=== PATIENT | male | born 1995 | race Caucasian/White ===

== ENCOUNTER 2019-05-09 09:33 | Emergency (ER) | payer OTHER, SELFPAY ==
[2019-05-09 09:45] VITALS: BP 144/93; PULSE 99; RESP 18; TEMP 36.8; O2SAT 99
--- NOTE | 2019-05-09 09:53 | ECG_ITS ---
Measurements Intervals [place] Rate: 64 P: 63 VA: 136 QRS: 40 QRSD: 93 T: 38 QT: 366 QTc: 379 Interpretive Statements SINUS RHYTHM NORMAL ECG Electronically Signed On 05-09-2019 10:29:07 INSPECTOR FINAL ASSEMBLY CONVEYOR LINE by Sarbjit Stark D.O.
--- NOTE | 2019-05-09 09:59 | ED.NEUROSD ---
HPI - Neuro Symptoms/Deficit General Chief Complaint: Neuro Symptoms/Deficit Stated Complaint: Numbness in Face,Pain in left Arm Time Seen by Provider: 05/09/19 09:45 Source: patient, family and RN notes reviewed Mode of arrival: ambulatory Limitations: no limitations History of Present Illness HPI Narrative: Patient presents today complaining of a sudden onset bilateral temporal headache that started at 730 this morning. Lasted a few minutes, then mostly resolved. This was then followed by some left-sided facial numbness that started out on the left lateral portion of the nose extending to the cheek and left upper lip. This symptom has improved slightly, but is still present. This symptom was followed by some mild pain in the left arm and leg, then some nausea and vomiting x1 around 830 this morning. Pain in the arm and leg are resolved. Patient has no persistent nausea. Reports his only symptoms currently are lightheadedness and mild facial numbness. Denies chest pain, shortness of breath, abdominal pain. Denies numbness or tingling in the arms or legs. He has tried no interventions at home prior to arrival. Reports grandfather had an MA at a young age and mother currently has an arrhythmia. Patient has history of anxiety and depression with occasional panic attacks. States this does not feel like his normal panic attack. No history of migraines. Related Data Home Medications Medication Instructions Recorded Confirmed bupropion HCl [Wellbutrin XL] 150 mg PO QAM 05/09/19 05/09/19 Allergies Allergy/AdvReac Type Severity Reaction Status Date / Time No Known Allergies Allergy Verified 05/09/19 09:45 Review of Systems Review of Systems: Narrative: CONSTITUTIONAL: Denies body aches, fever, chills, or sweats. EYES: Denies visual changes, redness, or discharge. ENT: Denies rhinorrhea, congestion, sore throat, or otalgia. CARDIOVASCULAR: Denies chest pain, palpitations, or edema. RESPIRATORY: Denies cough or dyspnea. GASTROINTESTINAL: Denies abdominal pain, nausea, vomiting, or diarrhea. GENITOURINARY: Denies dysuria or hematuria. SKIN: Denies rash, itching, or wounds. MUSCULOSKELETAL: Denies back pain, joint pain, or myalgia. NEUROLOGIC: Denies headache, tingling, or weakness.+ Facial numbness, lightheadedness PSYCH: Denies depression or anxiety. [facility] Past Medical History Medical History (Updated 05/09/19 @ 10:07 by Tete Dickey, COMMUNICATION TECHNICIAN, ) Anxiety Depression History of panic attacks Social History Social History Gender identity (if verbalized by the patient): Male Comments At time of signature, I have reviewed and agree with nursing past medical, surgical, social and family history unless otherwise noted. Please see nursing chart for further information. There is no relevant family history pertinent to the presenting complaint Exam Narrative: Exam Narrative: GENERAL: Well-appearing, well-nourished, and in no acute distress. HEAD: Normocephalic, atraumatic. EYES: EOMI. No redness or drainage. Conjunctivae normal. ENT: Mucous membranes pink and moist. Nares clear. No rhinorrhea. TMs normal bilaterally. NECK: Normal AROM. CHEST: No respiratory distress. Clear to auscultation. HEART: Regular rate and rhythm. No murmur appreciated. Normal peripheral pulses. MUSCULOSKELETAL: No bony tenderness. EXTREMITIES: Normal range of motion. No edema. SKIN: Warm, dry, no rash. NEURO: No focal deficits. Cranial nerves intact. Alert and oriented x3. Gait steady. Foot push and pulls normal and strong. Hand director ship equal and strong. PSYCH: Normal affect. No signs of depression or anxiety. Course Vital Signs Vital signs: Vital Signs Temperature 98.3 F 05/09/19 09:45 Pulse Rate 99 05/09/19 09:45 Respiratory Rate 18 05/09/19 09:45 Blood Pressure 144/93 H 05/09/19 09:45 Pulse Oximetry 99 05/09/19 09:45 Temperature 98.3 F 05/09/19 09:45 Pulse Rate 99 05/09/19 09:45 Respirat
== END 2019-05-09 10:08 | disposition short-term general hospital (02) ==
PROVIDERS: Emergency Provider Nurse Practitioner; PCP Physician Assistant
DX: R20.0 Anesthesia of skin (principal); R42 Dizziness and giddiness; F32.9 Major depressive disorder, single episode, unspecified
CPT/HCPCS: 93005; 99203; G0463

== ENCOUNTER 2019-05-09 10:20 | Emergency (ER) | payer OTHER, SELFPAY ==
--- NOTE | ~2019-05-09 | CT_ITS ---
EXAMINATION: CTA brain carotid DATE: 05/09/2019 11:45 INDICATION: Acute temporal headache. TECHNIQUE: Computed tomographic angiography (CTA) of the head was performed without and with 100 mL O mnipaque-350 intravenous contrast. CTA of the neck was performed with intravenous contrast. Automated exposure control and iterative reconstruction technique were employed. The dose-length product was 1 759.84 mGy-cm. Maximum intensity projection and volume rendered 3D-reconstructions were created by teresa bonds technologist on a separate workstation. COMPARISON: None. FINDINGS: HEAD CTA: There is no intracranial hemorrhage, acute infarction, or abnormal intracranial mass lesion . The ventricles are normal in size. There is mucosal thickening in the paranasal sinuses. The mastoi d air cells are normal. The orbits are normal. The vertebral arteries are codominant. There is no sig nificant stenosis of basilar artery or the posterior cerebral arteries. There is no significant steno sis of the intracranial internal carotid arteries or anterior or middle cerebral arteries. Anterior c ommunicating artery and the posterior communicating arteries are normal. There is no aneurysm. NECK CTA: There are no pathologically enlarged lymph nodes. There is no significant stenosis of the v ertebral arteries. There is no visible plaque in the proximal internal carotid arteries. There is 0% stenosis of the proximal right internal carotid artery relative to normal distal artery lumen diamete r (NASCET criteria). There is 0% stenosis of the proximal left internal carotid artery relative to no rmal distal artery lumen diameter. The cervical spine is normal. IMPRESSION: 1. Normal brain. No aneurysm or significant intracranial arterial stenosis. 2. Normal neck arteries. Reviewed, dictated and finalized at location A. H TECHNICIAN
--- NOTE | ~2019-05-09 | XR_ITS ---
EXAMINATION: XR chest 2V EXAM DATE: 05/09/2019 11:16 INDICATION: Left arm numbness. Left chest pain. TECHNIQUE: Frontal and lateral projections of the chest obtained and reviewed. There is no prior georgi dy for comparison. FINDINGS: The lungs are clear. There are no pleural effusions. The cardiomediastinal silhouette is within normal limits. There is no pneumothorax suspected. The bones and soft tissues are unremarkab le. IMPRESSION: No acute cardiopulmonary findings. Reviewed, dictated and finalized at location A. CTION MACHINE OPERATOR
--- NOTE | 2019-05-09 10:29 | ED.NEUROSD ---
HPI - Neuro Symptoms/Deficit General Chief Complaint: Neuro Symptoms/Deficit Stated Complaint: Numbness, HERNANDEZ Time Seen by Provider: 05/09/19 10:24 Source: patient Mode of arrival: ambulatory Limitations: no limitations History of Present Illness HPI Narrative: Pt is a 23 y/o male who presents to the ED from the with c/o a throbbing MIGDALIA temporal HERNANDEZ that started this morning. Pt states that the HERNANDEZ started suddenly and it alleviated after a minute. He was able to eat breakfast, but after breakfast he got a numbing sensation in a small area from his lt nostril, lt upper lip, and lt cheek. Pt vomited afterwards and started experiencing lt arm pain, weakness, and chest tightness. He felt lightheaded when he was at the waiting room. Per spouse, pt did not have slurred speech or facial drooping. He has a FHx of cardiac disease. Pt has a H/o anxiety but states that his Sx were not consistent with previous panic attacks. He states that he has chronic neck stiffness. Pt is not having any Sx in the ED bed. Onset (ago): hour(s) (this morning) Location: left face and other (HERNANDEZ) History of same: No Quality: numb and other (HERNANDEZ) Relieving factors: time Exacerbating factors: none Context: sudden onset Associated symptoms: other (lightheadedness) Related Data Home Medications Medication Instructions Recorded Confirmed bupropion HCl [Wellbutrin XL] 150 mg PO QAM 05/09/19 05/09/19 Allergies Allergy/AdvReac Type Severity Reaction Status Date / Time No Known Allergies Allergy Verified 05/09/19 09:45 Review of Systems Review of Systems: Narrative: CONSTITUTIONAL: Reports generalized weakness CARDIOVASCULAR: Reports lightheadedness and chest tightness GASTROINTESTINAL: Reports vomiting MUSCULOSKELETAL: Reports lt arm pain and chronic neck stiffness NEUROLOGIC: Reports MIGDALIA temporal HERNANDEZ, numbness to lt face. Denies slurred speech or facial drooping All systems reviewed & are unremarkable except as noted in HPI and below PMFSH Past Medical History Medical History (Updated 05/09/19 @ 12:21 by Olena Carroll MD) Anxiety Depression History of panic attacks Surgical History Surgical History (Updated 05/09/19 @ 11:13 by Asad Gaxiola) No significant past surgical history Social History Social History (Updated 02/04/20 @ 11:13 by Asad Gonsalez Smoking status: Never smoker Gender identity (if verbalized by the patient): Male Exam Narrative: Exam Narrative: GENERAL: Well-appearing, well-nourished, and in no acute distress. HEAD: Normocephalic, atraumatic. EYES: PERRLA and EOMI. ENT: Nares clear, no rhinorrhea or epistaxis. Mucous membranes moist. NECK: Supple. No cervical midline tenderness. CHEST: Clear to auscultation. No respiratory distress. No chest wall tenderness. HEART: Regular rate and rhythm. No murmur heard. Normal peripheral pulses. ABDOMEN: Soft, nontender, nondistended, normal active bowel sounds. EXTREMITIES: Normal range of motion. No edema. SKIN: Warm, dry, no rash. NEURO: No focal deficits. Alert and oriented X3. Finger to nose intact bilaterally. EOMs intact without nystagmus. No facial droop/asymmetry noted bilaterally. Grimace intact. Intact sensation in face. Hearing intact bilaterally. Shoulder shrug intact. Strength 5/5 bilateral upper extremities. Strength 5/5 bilateral lower extremities. Reflexes 2+ patellar. Heel to cueto intact bilaterally. Ambulatory with a narrow based steady gait. No ataxia. Course Vital Signs Vital signs: Vital Signs Temperature 36.9 C 05/09/19 10:38 Pulse Rate 73 05/09/19 10:38 Respiratory Rate 05/09/19 10:38 Blood Pressure 127/80 05/09/19 10:38 Pulse Oximetry 99 05/09/19 10:38 Temperature 36.9 C 05/09/19 10:38 Pulse Rate 73 05/09/19 10:38 Respiratory Rate 05/09/19 10:38 Blood Pressure 127/80 05/09/19 10:38 Pulse Oximetry 99 05/09/19 10:38 MDM - Neuro Symptoms/Deficit MDM Narrative Medical decision making narrative: T
--- NOTE | 2019-05-09 10:35 | ECG_ITS ---
Measurements Intervals [place] Rate: 71 P: 59 MT: 141 QRS: 28 QRSD: 88 T: 10 QT: 334 QTc: 364 Interpretive Statements SINUS RHYTHM WITH SINUS ARRHYTHMIA BASELINE WANDER- III, V4-V6 NORMAL ECG Electronically Signed On 05-09-2019 10:55:56 SPIDER ASSEMBLER by Sarbjit Stark D.O.
[2019-05-09 10:38] VITALS: BP 127/80; PULSE 73; RESP 20; TEMP 36.9; O2SAT 99
[2019-05-09] MEDS: MAGNESIUM SULF 2 GM/WATER 50ML 2 GM/50 ML BAG IVPB (10:51)
[2019-05-09] MEDS: METOCLOPRAMIDE HCL INJ 10 MG/2 ML VIAL IV PUSH (10:51)
[2019-05-09] MEDS: SODIUM CHLORIDE 0.9% IV 1,000 ML 999 ML IV CONT (10:51)
[2019-05-09 11:00] LABS: Basophils Percent Auto 0.3 % (0.2-1.2); Eosinophils Absolute Auto 0.1 K/mm3 (0-0.3); Eosinophils Percent Auto 0.5 % (0-4.4); Hematocrit 45.6 % (42.0-52.0); Hemoglobin 15.9 g/dL (14.0-18.0); Immature Granulocyte Absolute 0.05 K/mm3 (0.00-0.031); Immature Granulocyte Percent A 0.5 % (0-0.5); Lymphocytes Absolute Auto 1.42 K/mm3 (0.9-3.2); Lymphocytes Percent Auto 13.6 % (18.3-44.2); Mean Corpuscular HGB Conc 34.9 g/dl (32-36); Mean Corpuscular Hemoglobin 29.8 pg (26-34); Mean Corpuscular Volume 85.4 fl (80-100); Mean Platelet Volume 10.4 fl (7.4-10.4); Monocytes Absolute Auto 0.8 K/mm3 (0.1-0.6); Monocytes Percent Auto 7.4 % (2.6-8.5); Neutrophils Absolute Auto 8.1 K/mm3 (1.3-6.7); Neutrophils Percent Auto 77.7 % (45.5-73.1); Platelet Count Result 312 k/mm3 (150-375); Red Blood Count 5.34 M/mm3 (4.6-6.20); Red Cell Distribution Width 12.8 % (11.5-14.5); White Blood Count 10.4 K/mm3 (4.5-10.0)
[2019-05-09 11:10] LABS: Prothrombin Time 12.6 Seconds (11.1-14.7)
[2019-05-09 11:11] LABS: Partial Thromboplastin Time 29.5 SECONDS (22.3-36.8)
[2019-05-09 11:15] LABS: Blood Urea Nitrogen 10 mg/dL (9-20); Calcium 9.4 mg/dL (8.4-10.2); Carbon Dioxide 25 mmol/L (22-30); Chloride 103 mmol/L (98-107); Estimated Glomerular Filt Rate > 60; Glucose 98 mg/dL (75-110); Potassium 3.9 mmol/L (3.4-5.0); Sodium 139 mmol/L (137-145)
[2019-05-09 11:26] LABS: Troponin I < 0.012 ng/mL (0.000-0.034)
[2019-05-09 12:30] VITALS: BP 125/66; PULSE 70; RESP 16; O2SAT 98
--- NOTE | 2019-05-11 10:10 | PC.NURSE ---
LATE ENTRY This note is being entered to document information to the patient's record. The following information was omitted on [05/09/19], by [Jamel Vasques] Normal saline infused at 1152, Magnesium Drip infused at 1151.
== END 2019-05-09 12:35 | disposition home or self-care (01) ==
PROVIDERS: Emergency Provider Emergency Medicine; PCP Physician Assistant
DX: G43.909 Migraine, unspecified, not intractable, without status migrainosus (principal); F41.9 Anxiety disorder, unspecified; F32.9 Major depressive disorder, single episode, unspecified
CPT/HCPCS: 36415; 70496; 70498; 71046; 80048; 84484; 85025; 85610; 85730; 93005; 96365; 96375; 99284; J1100; J1200; J2765; J3475; J7030; Q9967

== ENCOUNTER 2024-04-04 07:38 | Outpatient (CLI) | payer OTHER, SELFPAY ==
[2024-04-04 18:24] LABS: Hematocrit 48.2 % (42.0-52.0); Mean Corpuscular HGB Conc 33.2 g/dl (32-36); Mean Corpuscular Hemoglobin 30.4 pg (26-34); Mean Corpuscular Volume 91.5 fl (80-100); Platelet Count Result 324 k/mm3 (150-375); Red Blood Count 5.27 M/mm3 (4.6-6.20); Red Cell Distribution Width 13.1 % (11.5-14.5); White Blood Count 9.1 K/mm3 (4.5-10.0)
[2024-04-04 18:35] LABS: Alanine Aminotransferase 27 U/L (6-50); Albumin Level 4.4 g/dL (3.5-5.1); Alkaline Phosphatase 102 U/L (38-126); Anion Gap 4 mmol/L (4-12); Aspartate Amino Transferase 64 U/L (17-59); Bilirubin,Total 0.5 mg/dL (0.2-1.3); Blood Urea Nitrogen 12 mg/dL (9-20); Calcium 9.4 mg/dL (8.4-10.2); Carbon Dioxide 26 mmol/L (22-30); Chloride 109 mmol/L (98-107); Cholesterol 172 mg/dL (0-200); Estimated Glomerular Filt Rate > 60; Glucose 85 mg/dL (65-110); HDL Direct 41 mg/dL; Potassium 4.2 mmol/L (3.4-5.0); Sodium 139 mmol/L (137-145); Triglycerides 197 mg/dL (<150)
[2024-04-04 18:46] LABS: LDL Cholesterol Direct 80 mg/dL
== END 2024-04-04 07:39 | disposition home or self-care (01) ==
LOC: ANHBWCLAB 07:39
PROVIDERS: PCP Nurse Practitioner Adult Health; Visit Provider Nurse Practitioner Adult Health
DX: Z13.9 Encounter for screening, unspecified (principal)
CPT/HCPCS: 36415; 80053; 80061; 84443; 85027